=== PATIENT | male | born 1995 | race Caucasian/White ===

== ENCOUNTER 2024-03-06 09:17 | Emergency (ER) | payer BC, SELFPAY ==
[2024-03-06 09:19] VITALS: BP 130/53
[2024-03-06 09:20] VITALS: BP 130/53
--- NOTE | 2024-03-06 09:20 | ED.GENMED ---
History of Present Illness
General
Chief Complaint: Seizure
Source: patient and ambulance crew
Exam Limitations: none
Time Seen by Provider: 03/06/24 09:19
History of Present Illness
History of Present Illness:
See MDM
Past History
Past History
ED Past Medical History: Seizures
ED Past Surgical History: Other (Facial plastic surgery from dog bite)
Social History
Tobacco: Non-smoker
Alcohol: Occasional
Phy Exam
Physical Exam
Physical Exam:
See MDM
Course
Orders/Labs/Results
Orders:
Orders
03/06/24 09:20
Levetiracetam Injectable [Keppra] 2,000 mg IV NOW STA
03/06/24 09:27
Complete Blood Count/With Diff Urgent
Comprehensive Metabolic Panel Urgent
Abnormal Lab Results
03/06/24
09:27
Hgb 12.8 L g/dL
(13.0-18.0)
Hct 38.7 L %
(39.0-52.0)
MPV 11.1 H fL
(7.4-10.4)
Abs Immat Gran (auto) 0.1 H 10^3/uL
(0-0.05)
Immature Gran % 1.2 H %
(0-0.5)
03/06/24 09:27
03/06/24 09:27
Vital Signs
Initial and Last Documented VS:
Initial Vital Signs
Temp Pulse Resp BP Pulse Ox
99.6 F 84 20 130/53 96
03/06/24 09:19 03/06/24 09:19 03/06/24 09:19 03/06/24 09:19 03/06/24 09:19
Last Documented Vital Signs
Temp Pulse Resp BP Pulse Ox
99.6 F 76 14 130/53 96
03/06/24 09:19 03/06/24 09:45 03/06/24 09:45 03/06/24 09:20 03/06/24 09:45
MDM/Problems Addressed
Differential Diagnosis Includes:
HPI and MDM Narrative:
29-year-old male presenting for evaluation after a seizure. He does have a history of seizure disorder and is usually compliant with his 500 mg Keppra twice daily. It was [birth year] birthday last night and he was drinking alcohol. He missed his dose of
Keppra last night. This morning, his girlfriend 100 thawed and noted that he was seizing. It lasted for approximately 1 minute. Patient did bite his tongue. On arrival, patient is no longer postictal. He has not had a chance to take his morning
dose of Keppra. There is no evidence of trauma on exam. Will load with 2 g of and continue to monitor
Physical exam
General: Well appearing and non-toxic
HEENT: protecting airway. Anterior right tongue bite
Neck: supple
CV: No evidence of cyanosis. Regular rate and rhythm
Resp: No accessory muscle use
Abd: Non-distended
Extremities: No deformities
Neuro: alert
Psych: Normal affect
Skin: Intact
Problems Addressed including Acute and Chronic Conditions affecting care:
1. Breakthrough seizure
Acuity: acute
Prognosis: stable
Details: Likely in the setting of recent alcohol use and missing Keppra dose. Will load with Keppra and continue to monitor. Given that he is at his baseline, CT head is low yield
Updates
9:30 AM his girlfriend is at bedside. Both patient and his girlfriend acknowledge that he cannot drive until cleared by neurology
11 AM after prolonged observation, patient remains well-appearing and nontoxic and feels comfortable going home. He will follow-up with his neurologist
Differential Diagnosis (but not limited to): Breakthrough seizure, medication noncompliance
Testing considered: CT head but he has no no focal deficits it is back to baseline
Drug therapy (if applicable): OTC meds, please see d/c instruction regarding Rx drugs
Amount and/or Complexity of Data Reviewed
Clinical info obtained from: Patient
External data reviewed: N/A
Labs I independently reviewed (but not limited to): White blood cell count normal
Radiology: N/A
Pulse Ox: not hypoxic
EKG independently reviewed: N/A
Manager Loss Prevention: N/A
Critical Care: N/A
Risk of Complication:
Social Determinants of health: Good social support
Discussed with other providers: N/A
Escalation of Care includes Admit/Obs: After being observed in the Emergency Department, pt stable for discharge.
Occasional wrong word or 'sound a like' substitutions may have occurred due to the inherent limitations of voice recognition software. Read the chart carefully and recognize, using context, where substitutions have occurred.
*Critical Care Note
Total Time (30-74mins, 75-104mins- exclusive of procedures): Not Applicable
ED Attending Note
-
Portions of this chart may have been created with voice recognition software.� Occasional wrong word or��sound alike� substitutions may have occurred due to the inherent limitations of voice recognition software.
Discharge Plan
Departure
Patient Disposition: Home (Routine Discharge)
Date of Disposition: 03/06/24
Time of Disposition: 11:02
Patient with high blood pressure during this ER visit?: No
Discharge Problem:
Breakthrough seizure
Instructions: Seizures, Adult (DC)
Referrals:
UNKNOWN - PT DOES,NOT KNOW [Family Provider] -
Activity Restrictions/Additional Instructions:
As we discussed, the breakthrough seizure could be a mixture of the alcohol use and missing the keppra dose last night. Do not drive a car until cleared by your neurologist. Call for first available appointment.
I gave you 2 grams of Keppra through the IV this morning. You do not need to take your morning Keppra dose when you get home. You can continue your normal dosing tonight.
Please return for any worsening symptoms.
You may return at any time if you have further concerns.
Interventions
Interventions:
*Risk Screen - Suicide Last Done: 03/06/24 09:19
*General Assessment Last Done: 03/06/24 09:19
*Neglect/Abuse Screening Last Done: 03/06/24 09:19
*ED COVID-19 Vaccine History Last Done: 03/06/24 09:26
ED- Cardiac Assessment Last Done: 03/06/24 09:46
ED- Neurological Assessment Last Done: 03/06/24 09:46
ED- Pulmonary Assessment Last Done: 03/06/24 09:46
Discharge Date and Time
Print Language: [id number]
[2024-03-06] MEDS: KEPPRA 2000 MG IV (09:31)
[2024-03-06 09:43] LABS: % Basophils 0.9 % (0-2); % Eosinophils 3.6 % (0-6); % Immature Granulocytes 1.2 % (0-0.5); % Lymphocytes 35.1 % (20.5-51.1); % Neutrophils 53.2 % (42.2-75.2); Absolute Basophils 0.1 10^3/uL (0-0.2); Absolute Eosinophils 0.2 10^3/uL (0-0.7); Absolute Immature Granulocytes 0.1 10^3/uL (0-0.05); Absolute Lymphocytes 2.3 10^3/uL (1.2-3.4); Absolute Monocytes 0.4 10^3/uL (0.1-0.6); Absolute Neutrophils 3.4 10^3/uL (1.4-6.5); Hematocrit 38.7 % (39.0-52.0); Hemoglobin 12.8 g/dL (13.0-18.0); Mean Corp Hgb Conc. 33.1 g/dL (33.0-37.0); Mean Corpuscular Hgb 27.1 pg (27.0-31.0); Mean Platelet Volume 11.1 fL (7.4-10.4); Nucleated Red Blood Cells % 0 % (-); Platelet Count 197 10^3/uL (130-400); Red Blood Cell Count 4.72 10^6/uL (4.70-6.10); Red Cell Dist. Width 13.4 % (11.5-14.5); White Blood Cell Count 6.5 10^3/uL (4.8-10.8)
[2024-03-06 09:55] LABS: ALT (SGPT) 18 U/L (0-50); AST (SGOT) 28 U/L (17-59); Albumin 4.6 g/dl (3.5-5.0); Alkaline Phosphatase 60 U/L (38-126); Blood Urea Nitrogen 13 mg/dl (9-20); Calcium 9.4 mg/dl (8.4-10.2); Carbon Dioxide 26 mmol/L (22-30); Chloride 103 mmol/L (98-107); Estimated Creatinine Clearance > 125 ml/min; Glucose 95 mg/dl (70-99); Potassium 4.1 mmol/L (3.5-5.1); Sodium 143 mmol/L (135-145); Total Protein 6.8 g/dl (6.3-8.2); eGFR > 60.00
[2024-03-06 10:00] VITALS: BP 125/68
[2024-03-06 11:00] VITALS: BP 123/77
== END 2024-03-06 11:25 | disposition home or self-care (01) ==
LOC: EMR 09:17
PROVIDERS: EMERGENCY PHYSICIAN Student in an Organized Health Care Education/Training Program
DX: G40.909 Epilepsy, unspecified, not intractable, without status epilepticus (principal); F10.90 Alcohol use, unspecified, uncomplicated; Z91.138 Patient's unintentional underdosing of medication regimen for other reason
CPT/HCPCS: 99284; 96374; 80053; 85025